=== PATIENT | female | born 1945 | race Caucasian/White ===

== ENCOUNTER 2019-04-04 15:01 | Inpatient (IN) | payer OTHER ==
[~2019-04-04] VITALS: Ht 149.9 cm; Wt 98.4 kg
[2019-04-04 15:05] VITALS: BP 105/60
--- NOTE | 2019-04-04 15:17 | NUR ---
CALL TO PT'S DPOA, DAUGHTER BULMARO, @ [phone]
[2019-04-04 15:29] LABS: ABSOLUTE BASOPHILS 0.1 thou/uL (0.0-0.2); ABSOLUTE EOSINOPHILS 0.1 thou/uL (0.0-0.7); ABSOLUTE LYMPHOCYTES 2.1 thou/uL (0.8-5.3); ABSOLUTE MONOCYTES 1.4 thou/uL (0.0-1.2); ABSOLUTE NEUTROPHILS 14.1 thou/uL (1.6-8.1); BASOPHILS 0.5 %; BE -1.6 mmol/L (-2 to +3); EOSINOPHILS 0.7 %; HEMATOCRIT 37.4 % (37.0-47.0); LYMPHOCYTES 11.9 %; MCHC 32.2 g/dL (28.0-37.0); MCV 99.4 fL (80.0-100.0); MONOCYTES 7.6 %; MPV 7.8 fl. (7.2-11.1); NUCLEATED RBCS 0 /100WBC; PLATELET COUNT* 353 thou/uL (150-400); PO2 74.6 mmHg (75.0-100.0); POLYS 79.3 %; RBC 3.76 mil/uL (4.20-5.00); RDW-CV 13.7 % (10.5-14.5); WBC 17.8 thou/uL (4.0-11.0); pH 7.382 (7.340-7.450)
[2019-04-04 15:37] LABS: CALCIUM 9.3 mg/dL (8.5-10.1); CREATININE 1.8 mg/dL (0.6-1.3); POTASSIUM 3.7 mmol/L (3.5-5.1)
[2019-04-04 15:41] LABS: ALBUMIN 3.2 g/dL (3.4-5.0); MAGNESIUM 1.8 mg/dL (1.8-2.4); TOTAL BILIRUBIN 1.5 mg/dL (<0.1-1.0); TOTAL PROTEIN 6.9 g/dL (6.4-8.2)
[2019-04-04] MEDS ORDERED: CLOPIDOGREL75 MG PO (16:02)
[2019-04-04] MEDS ORDERED: TOPROL XL25 MG PO (16:02)
[2019-04-04] MEDS ORDERED: VALIUM5 MG PO (16:03)
[2019-04-04] MEDS ORDERED: PREDNISONE 10 M10 MG PO (16:03)
[2019-04-04] MEDS ORDERED: LISINOPRIL5 MG PO (16:03)
[2019-04-04] MEDS ORDERED: LASIX 40 MG TAB40 M2 PO (16:04)
[2019-04-04] MEDS ORDERED: SINGULAIR 10 MG10 M1 PO (16:04)
[2019-04-04] MEDS ORDERED: ATIVAN1 MG PO (16:04)
[2019-04-04 16:25] LABS: APTT 24.9 Seconds (25.0-31.3)
[2019-04-04 16:36] LABS: TROPONIN-I LEVEL 0.62 ng/mL (<0.06)
[2019-04-04 18:11] VITALS: BP 102/58
[2019-04-04 18:47] VITALS: BP 126/66
--- NOTE | 2019-04-04 18:50 | NUR ---
PT ADMITTED TO ROOM 204. POSITIVE SEPSIS PROTOCOL IN ED. ED ADMINISTERED 2L NS BOLUS. PULM CONSULT CALLED TO ANSWERING SERVICE. VSS. PT ON 4L O2/NC. HOME DOSE 3L/NC. PT ON HEPARIN GTT FOR NSTEMI. TELE ST WITH RATE IN THE LOW 100'S. ED REPORTS THAT PT REFUSES BIPAP IF NEEDED. NO OTHER CONCERNS AT THIS TIME. CLWR. WCTM.
[2019-04-04 20:00] VITALS: BP 103/60
[2019-04-04 23:58] VITALS: BP 111/54
[2019-04-05 00:27] LABS: URINE BILIRUBIN NEGATIVE (Negative); URINE BLOOD 3+ (Negative); URINE CLARITY CLEAR; URINE COLOR YELLOW; URINE GLUCOSE-RANDOM NEGATIVE (Negative); URINE KETONES 1+ (Negative); URINE LEUKOCYTES-REFLEX 1+ (Negative); URINE NITRITE-REFLEX NEGATIVE (Negative); URINE PROTEIN TRACE (Negative); URINE SPECIFIC GRAVITY 1.025 (1.005-1.030); URINE UROBILINOGEN 0.2 E.U./dl (0.2-1.0)
[2019-04-05 02:07] LABS: SQUAMOUS 0-3 Few /LPF (0-3)
[2019-04-05 02:08] LABS: FINE GRANULAR CASTS 0-3 Few /LPF (None Seen); HYALINE CASTS 4-10 Moderate /LPF (None Seen); MUCUS 0-3 Light strn/LPF (None Seen); URINE WBC-REFLEX >25 Many /HPF (0-5)
[2019-04-05 02:09] LABS: BACTERIA-REFLEX >30 Many /HPF (None Seen); CRYSTALS None Seen /LPF (None Seen); URINE RBC 3-10 Few /HPF (0-2)
[2019-04-05 04:00] VITALS: BP 115/65
--- NOTE | 2019-04-05 04:51 | NUR ---
ASSUMED CARE OF PT AFTER REPORT AT 1930. PT A&OX4. VSS. PHYSICAL ASSESSMENT COMPLETED AND CHARTED. PT ON O2 AT 4L NC. PT TRACING SR ON TELE. PT WITH CHAPIN TO DEPENDENT DRAIN. PT ON HEPARIN DRIP. TITRATED PER PROTOCOL. URINE & SPUTUM SPECIMEN SENT TO LAB. INSTRUCTED ON NPO POST MIDNIGHT FOR CARDIO CONSULTS. COMMUNICATES UNDERSTANDING. CALL LIGHT WITHIN REACH.
[2019-04-05 05:11] LABS: HEMOGLOBIN 10.6 gm/dL (12.0-15.0); MCH 32.3 pg (26.0-34.0); MCHC 32.2 g/dL (28.0-37.0); MCV 100.4 fL (80.0-100.0); MPV 8.1 fl. (7.2-11.1); RBC 3.29 mil/uL (4.20-5.00); WBC 17.7 thou/uL (4.0-11.0)
[2019-04-05 05:51] LABS: ALBUMIN 2.6 g/dL (3.4-5.0); ALKALINE PHOSPHATASE 72 U/L (46-116); ANION GAP 11 mmol/L (7-16); BUN 30 mg/dL (7-18); CALCIUM 9.1 mg/dL (8.5-10.1); CHLORIDE 107 mmol/L (98-107); CHOLESTEROL 98 mg/dL (<200); CO2 22 mmol/L (21-32); CREATININE 1.6 mg/dL (0.6-1.3); GLUCOSE 384 mg/dL (70-99); HDL CHOLESTEROL 57 mg/dL (>40); LDL CHOLESTEROL 29 mg/dL (<100); POTASSIUM 3.5 mmol/L (3.5-5.1); SGOT 46 U/L (15-37); SGPT 39 U/L (30-65); SODIUM 140 mmol/L (136-145); TC:HDL 1.7 Ratio (Not establshd); TOTAL BILIRUBIN 0.4 mg/dL (<0.1-1.0); TOTAL PROTEIN 6.4 g/dL (6.4-8.2); TRIGLYCERIDE 64 mg/dL (<150); VLDL 13 mg/dL (<40)
[2019-04-05 05:53] LABS: SERUM ASSESSMENT Clear
--- NOTE | 2019-04-05 10:16 | NUR ---
Pt is A&O. Resides at home with family. Pt is independent with ADLs, family share IADLs. Pt states that she can ambulate, but states that she pushes her wc with her at all times. Pt wears home o2, provided through [employer]. Hx of [facility] hospice x1 year, Pt is no longer on service. No hx of HH or SNF. Goal is home at nm. Following.
[2019-04-05 10:26] VITALS: BP 144/70
--- NOTE | 2019-04-05 10:43 | EKG ---
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1945 Requested By: Bianca Scott Order Number: [id number] Alfredo MD: Ross Lipscomb Measurements Intervals [place] Rate: 143 P: 49 ID: [id number] QRS: -1 QRSD: 139 T: 99 QT: 392 QTc: 605 Interpretive Statements Sinus tachycardia LAE, consider biatrial enlargement Left bundle branch block No previous ECG available for comparison Electronically Signed On 04-05-2019 10:43:21 CDT by Ross Lipscomb [email or web address] <ELECTRONICALLY SIGNED> By: Ross Lipscomb MD, [facility] 04/05/19 1043 1504 1504 Ross Lipscomb MD, [facility] /EPI
[2019-04-05 11:29] VITALS: BP 126/69
--- NOTE | 2019-04-05 13:05 | 2DMMODE ---
[place] [address] 2 D/M-MODE ECHOCARDIOGRAM Name: RADHAANNIA Room: [address] IN [facility]#: [id number] Admission: 04/04/19 Attend Phys: Kelvin Rodriguez, Discharge: Date of : 47 Date of Service: 04/05/19 1305 Report #: [id number] THIS REPORT FOR: //name// APPROVED REPORT Study performed: 04/05/2019 10:41:00 EXAM: Comprehensive 2D, Doppler, and color-flow Echocardiogram Patient Location: In-Patient Room #: [facility] Status: routine BSA: 1.92 HR: 103 bpm BP: 115/65 mmHg Rhythm: NSR Other Information Study Quality: Good Indications Acute CO COPD Sepsis 2D Dimensions IVSd: 11.48 (7-11mm) LVOT Diam: 20.20 (18-24mm) LVDd: 53.70 mm PWd: 9.14 (7-11mm) LVDs: 45.18 (25-40mm) Aortic Root: 33.22 mm Volumes Left Atrial Volume (Systole) LA ESV Index: 22.70 mL/m2 Aortic Valve AoV Peak Marc.: 1.35 m/s AO Peak Gr.: 7.28 mmHg LVOT Max P.42 mmHg AO Mean Gr.: 3.88 mmHg LVOT Mean P.83 mmHg LVOT Max V: 1.05 m/s AO V2 VTI: 23.10 cm LVOT Mean V: 0.61 m/s MAURIZIO (VTI): 2.46 cm2 LVOT V1 VTI: 17.74 cm Mitral Valve E/A Ratio: 1.08 [place] [address] 2 D/M-MODE ECHOCARDIOGRAM Name: ANNIA GARCIA Room: [address] IN [facility].#: [id number] Admission: 04/04/19 Attend Phys: Kelvin Rodriguez, Discharge: Date of : 47 Date of Service: 04/05/19 1305 Report #: [id number] MV Decel. Time: 200.23 ms MV E Max Marc.: 1.09 m/s MV PHT: 58.07 ms MVA (PHT): 3.79 cm2 TDI E/Lateral E': 9.91 E/Medial E': 12.11 Medial E' Marc.: 0.09 m/s Lateral E' Marc.: 0.11 m/s Pulmonary Valve PV Peak Marc.: 1.13 m/s PV Peak Gr.: 5.11 mmHg Left Ventricle The left ventricle is normal size. Regional wall motion abnormalities are noted. Severe hypokinesis noted of the base of the inferior wall There is normal left ventricular wall thickness. Left ventricular systolic function is mildly decreased. LVEF is 45-50%. Grade I - abnormal relaxation pattern. Right Ventricle The right ventricle is normal size. The right ventricular systolic function is normal. Atria The left atrium size is normal. The right atrium size is normal. Aortic Valve The aortic valve is normal in structure. No aortic regurgitation is present. There is no aortic valvular stenosis. Mitral Valve The mitral valve is normal in structure. Mild mitral regurgitation. No evidence of mitral valve stenosis. Tricuspid Valve The tricuspid valve is normal in structure. Unable to assess PA pressure. Trace tricuspid regurgitation. Pulmonic Valve The pulmonary valve is normal in structure. There is no pulmonic valvular regurgitation. Great Vessels The aortic root is normal in size. [place] [address] 2 D/M-MODE ECHOCARDIOGRAM Name: JARETT GARCIANE Room: [address] IN [facility]#: [id number] Admission: 04/04/19 Attend Phys: Kelvin Rodriguez, Discharge: Date of : 47 Date of Service: 04/05/19 1305 Report #: [id number] visualized. Pericardium There is no pericardial effusion. <Conclusion> LVEF is 45-50%. Regional wall motion abnormalities are noted. Severe hypokinesis noted of the base of the inferior wall Mild mitral regurgitation. <ELECTRONICALLY SIGNED> By: Ross Lipscomb MD, FAC 04/05/19 1305 1305 04 Ross Lipscomb MD, [facility] /INF
[2019-04-05 13:07] LABS: GLYCOHEMOGLOBIN (HGB A1C) 7.6 % (4.8-5.6)
--- NOTE | 2019-04-05 14:28 | NUR ---
ASSUMED PT CARE REPORT RECEIVED FROM MARIANN SILVA. PT IS AOX4. ON 2 L NC. SATURATION IS 96%. PT ACCUCHECK HIGH IN THE 300S. HGB A1C ORDERED, INSULIN ORDER IN FOR [address] ORDER. DR SZYMANSKI CONTACTED REGARDING HEPARIN DRIP. ORDER RECEIVED TO STOP THE DRIP AND TO ORDER LOVENOX. ORDER IS IN. WILL CONTINUE TO MONITOR PT
[2019-04-05 15:31] VITALS: BP 126/69
[2019-04-05 15:32] VITALS: BP 117/61
[2019-04-05 20:00] VITALS: BP 128/54
[2019-04-06] VITALS (7 sets, daily range): BP systolic 120–156; BP diastolic 49–80
--- NOTE | 2019-04-06 05:01 | NUR ---
ASSUMED CARE OF PT AFTER REPORT AT 1930. PT A&OX4. VSS. PHYSICAL ASSESSMENT COMPLETED AND CHARTED. PT ON O2 AT 2L NC. PT TRACING SR/ST/PVC ON TELE. PT WITH EPISODES OF INCOTINENT BLADDER. PT COMPLAINED OF SORETHROAT- DR TATE INFORMED WITH NEW ORDER. PT RESTED WELL ON BED. CALL LIGHT WITHIN REACH.
[2019-04-06 05:30] LABS: HEMATOCRIT 31.9 % (37.0-47.0); HEMOGLOBIN 10.3 gm/dL (12.0-15.0); MCH 31.8 pg (26.0-34.0); MCHC 32.3 g/dL (28.0-37.0); MCV 98.7 fL (80.0-100.0); MPV 8.3 fl. (7.2-11.1); NUCLEATED RBCS 0 /100WBC; PLATELET COUNT* 320 thou/uL (150-400); RBC 3.24 mil/uL (4.20-5.00); RDW-CV 13.8 % (10.5-14.5); WBC 21.5 thou/uL (4.0-11.0)
[2019-04-06 05:53] LABS: ALBUMIN 2.7 g/dL (3.4-5.0); CALCIUM 9.7 mg/dL (8.5-10.1); CREATININE 1.2 mg/dL (0.6-1.3); MAGNESIUM 2.2 mg/dL (1.8-2.4); POTASSIUM 3.7 mmol/L (3.5-5.1); TOTAL BILIRUBIN 0.3 mg/dL (<0.1-1.0); TOTAL PROTEIN 6.7 g/dL (6.4-8.2)
[2019-04-06 05:56] LABS: TROPONIN-I LEVEL 0.99 ng/mL (<0.06)
[2019-04-06 06:50] LABS: ABSOLUTE LYMPHOCYTES 0.9 thou/uL (0.8-5.3); ABSOLUTE MONOCYTES 1.1 thou/uL (0.0-1.2); ABSOLUTE NEUTROPHILS 19.6 thou/uL (1.6-8.1); METAMYELOCYTES 1 %; MYELOCYTES 1 %
[2019-04-06 06:51] LABS: PLATELET ESTIMATE ADEQUATE
--- NOTE | 2019-04-06 08:13 | CON ---
[address] [address] CONSULTATION Name: ANNIA GARCIA Room: [address] IN M.R.#: [id number] Admission: 04/04/19 Attend Phys: Kelvin Rodriguez MD Discharge: Date of : 47 Report #: [id number] THIS REPORT FOR: //name// CC: Kelvin Delgado CONSULTATION REQUESTING PHYSICIAN: Kelvin Rodriguez M.D. INDICATION FOR CONSULTATION: Shortness of breath. HISTORY OF PRESENT ILLNESS: This is a 73-year-old female with past medical history as mentioned below. I have previously seen her in the office. The patient has been on hospice care, but she had requested that we also continued to follow her as an outpatient and therefore, we had done so. The patient has a very low FEV1 at only 590 mL at 27% of the reference range. She is on long-term oxygen. She previously has also been on BiPAP while asleep and does have a history of obstructive sleep apnea as well. The patient, however, now reports that she has discontinued the use of BiPAP and is not willing to use at this time due to claustrophobia. The patient is now admitted here with severe shortness of breath yesterday. The patient had been coughing and bringing up significant amounts of yellow sputum for the last 2 weeks. She states that the hospitalist service did increase her prednisone to 20 mg daily for 5-7 days and subsequently brought her down back to 10. She does not report having had any recent antibiotics. She does not report any chest pain. She states that she has had a significant postnasal drip. She does not have a sore throat. There is no increasing swelling of lower extremities and there is no calf pain. She has disturbed sleep at night and sleepiness during the day. These complaints are at baseline. She has occasional joint pains and these remained also at baseline. REVIEW OF SYSTEMS: I asked a total of 12 questions for review of systems therapy review of systems is negative except as mentioned above. PAST MEDICAL HISTORY: COPD, very severe and she has been on hospice as mentioned above; chronic respiratory failure with hypoxemia secondary to COPD during the previous admission at [facility], we had to reintubate twice during the same admission; however, we were able to avoid performing a tracheostomy and PEG tube. The patient previously was on BiPAP but is now intolerant with a long-term prednisone and long-term oxygen, obstructive sleep apnea, chronic systolic congestive heart failure, previous left ventricular ejection fraction had dropped down to 35% with subsequent recovery of a left ventricular ejection fraction to a normal level at 50%-55% last year. The patient does have moderate mitral regurgitation. Also, history of ventricular fibrillation in the past. I do not recall her previous creatinine; however, there is no mention of kidney disease in the past. [place] [address] CONSULTATION Name: YESICASHITALJARETTANNIA Room: [address] IN ..#: [id number] Admission: 04/04/19 Attend Phys: Kelvin Rodriguez MD Discharge: Date of : 47 Report #: [id number] morbid obesity, also hypertension and coronary artery disease. SOCIAL HISTORY: She has an extensive history of smoking a half to 1 pack a day for several decades, perhaps more than 50 years, discontinued in 2016. No known history of heavy alcohol use or illegal drug use. CURRENT MEDICATIONS: List in [facility] reviewed. HOME MEDICATIONS: List in [facility] reviewed. Note that the patient was on 10 mg of prednisone daily. The list from November from our office, which is in the paper chart is also reviewed and includes amiodarone. ALLERGIES: No known drug allergies. FAMILY HISTORY: Hypertension and heart disease. PHYSICAL EXAMINATION: GENERAL: She is alert, awake and oriented, does appear to be short of breath at rest. VITAL SIGNS: She has a pulse of 93 and a blood pressure of 126/69. She is saturating 97%. She is on 3 liters oxygen via nasal cannula, respiratory rate is 18. She is afebrile with a temperature of 36.9 with minor elevation in temperature up to 37.0 earlier today. Body mass index is elevated to 45. HEENT: Head is normocephalic and atraumatic. Pupils are equal and reactive. There is no throat erythema. Airway is Mallampati 4. NECK: Does not show raised JVP, asymmetry, mass or lymph nodes. CHEST: Symmetrical expansion on inspection and palpation. On auscultation, breath sounds are bilaterally significantly decreased. Expirations are significantly prolonged. Breath sounds are bilaterally equal. I do not hear any added sounds. HEART: Regular. There is no murmur. ABDOMEN: Soft and nontender. EXTREMITIES: Lower extremities show no edema and no calf tenderness. SKIN: Dry and intact. NEUROLOGICAL: Moves all extremities bilaterally equally and spontaneously with no focal deficit identified. LABORATORY DATA: The patient's lab work, which does show an elevation in creatinine yesterday as [facility]. Creatinine was 1.8 yesterday and 1.6 this morning. The patient's CBC as well as arterial blood gas in [facility] reviewed. Coagulation studies in [facility] reviewed. Urinalysis in [facility] reviewed. Note that the patient was initially on IV heparin, which has now been discontinued and [place] [address] CONSULTATION Name: ANNIA GARCIA Room: [address] IN M.R.#: [id number] Admission: 04/04/19 Attend Phys: Kelvin Rodriguez MD Discharge: Date of : 47 Report #: [id number] RADIOLOGICAL DATA: The patient's chest x-ray from yesterday is reviewed. On my review, there is an infiltrate in the right middle lobe/lower lobe region. There is also small radiopaque density in the left lower lobe, which is also suspicious of an infiltrate, atelectasis or a small pleural effusion in the left lung base can also lead to the picture at the left lung base. There is no increase in pulmonary vascular congestion. There are some chronic changes. ASSESSMENT AND PLAN: 1. Woknk-nm-jgwicux hypoxemic respiratory failure. The patient does have a history of underlying obstructive sleep apnea and very severe COPD with benefit from BiPAP while asleep. I recommended the same. The patient declined. We will continue to titrate oxygen. 2. Pulmonary infiltrates on my review of the patient's chest x-ray. There is a right middle lobe/right lower lobe infiltrate. Certainly if this is old, then chronic changes can also account for this. I do not have a previous chest x-ray available. It will also be possible that there is an infiltrate in the left lower lobe. Therefore, I recommend continuing with broad-spectrum antibiotics. The patient has received Zithromax as well as ceftriaxone and has ordered the Zithromax as well as cefdinir to be continued tomorrow as the minimum inhibitory concentrations for certain bacteria are not always reached with 1 gram of ceftriaxone. I elected to order an additional dose of ceftriaxone now. Recommend reassessing the patient tomorrow morning and if the patient continues to improve, then it would be reasonable to continue oral antibiotics; otherwise, I would favor restarting an alternate agent, possibly an intravenous beta-lactam antibiotic again. Urine for Legionella antigen is pending. I went ahead and ordered urine for pneumococcal antigen as well. I have also ordered a chest x-ray now. 3. Chronic obstructive pulmonary disease exacerbation. Note that she is on long-term prednisone. I agree with Solu-Medrol as well as nebulized bronchodilators as currently prescribed. I would go ahead and add budesonide and Brovana. The patient also is on Singulair. Note that the patient is on long-term prednisone. 4. Renal insufficiency. I do not have a previous creatinine available. There is no mention of kidney disease on the previous records. I will review the chest x-ray, I have just ordered and then decide. We will also see if I can get a previous creatinine level. At this time, I am inclined to administer more fluids. Note that the patient does have infiltrates on the x-ray. The last lactate was elevated. 5. Obstructive sleep apnea, see discussion above. 6. Elevated troponin I/possible non-ST myocardial infarction. I would defer evaluation to the Cardiology Service. 7. Evaluation for thromboembolic phenomena. The repeat echo report just appeared in the computer, I was dictating, the left ventricular ejection fraction is 45%-50% now and the right heart pressures are not elevated. I feel that the V/Q scan is nondiagnostic. My suspicion of thromboembolism is low, I would therefore not continue anticoagulation for this reason. We would suggest [address] [address] CONSULTATION Name: ANNIA GARCIA Room: [address] IN .R.#: [id number] Admission: 04/04/19 Attend Phys: Kelvin Rodriguez MD Discharge: Date of : 47 Report #: [id number] only prophylactic dose Lovenox. I would defer to The Cardiology Service as to whether full anticoagulation is indicated from their point of view. For the sake of completion, I will go ahead and do venous Dopplers. 8. Hyperglycemia. The fasting blood glucose this morning is 384. I recommended starting an insulin sliding scale and if the glucoses remain elevated, suggested to the patient's RN to review with the patient's primary service. Thanks for this consultation. <ELECTRONICALLY SIGNED> By: Marybeth Martin MD 04/06/19 0813 1311 [id number] Siddiqui MD /nt
--- NOTE | 2019-04-06 14:49 | EKG ---
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[facility] : 1945 Requested By: Ross Lipscomb Order Number: [id number] Reading MD: Nitesh Devries Measurements Intervals [place] Rate: 105 P: 77 TX: 151 QRS: 17 QRSD: 97 T: 22 QT: 327 QTc: 433 Interpretive Statements Sinus tachycardia Multiple ventricular premature complexes Low voltage, precordial leads Compared to ECG 04/04/2019 15:04:45 Ventricular premature complex(es) now present Low QRS voltage now present Left bundle-branch block no longer present Electronically Signed On 04-06-2019 14:48:51 CDT by Nitesh Devries [email or web address] <ELECTRONICALLY SIGNED> By: Nitesh Devries MD, [facility] 04/06/19 1448 0741 0741 Nitesh Devries MD, [facility] /EPI
--- NOTE | 2019-04-06 15:38 | NUR ---
ASSUMED CARE OF PT AROUND 0730 THIS AM. REFER TO ASSESSMENT. PT TOLERATING HOME DOSE OXYGEN. TELE SR-ST THIS SHIFT. NOTED TO INCREASE HEART RATE IN THE 140'S WHEN AMBULATING TO BATHROOM. STANDARD DOSE INSULIN WITH SLIDING SCALE AND ORAL ANTIDIABETICS GIVEN TO MANAGE BLOOD SUGARS. NO OTHER CONCERNS AT THIS TIME. CLWR. WCTM.
--- NOTE | 2019-04-06 18:05 | CON ---
[address] [address] CONSULTATION Name: ANNIA GARCIA Room: [address] IN M.R.#: [id number] Admission: 04/04/19 Attend Phys: Kelvin Rodriguez MD Discharge: Date of : 47 Report #: [id number] THIS REPORT FOR: //name// CC: Kelvin Delgado DATE OF SERVICE: 04/05/2019 HISTORY OF PRESENT ILLNESS: The patient is a 73-year-old single white female whom I was asked to see in the hospital today after she is noted to have an elevated troponin. Unfortunately, not lot of the old records is available. The history is obtained from the patient, and no family was available. The patient states she was actually admitted to [place] in 2017 with shortness of breath. She apparently had to be intubated and was on a ventilator for 2 weeks. She has a history of COPD and has home oxygen and nebulized treatments. She had a previous coronary artery stent placed at [facility]. She is not very active because of her COPD. Over the last few days, she has had increasing shortness of breath and cough. She had a sore throat. Her daughter brought her to the hospital yesterday. She was admitted. She is noted to have an elevated troponin. I was asked to see her for further evaluation and treatment. She denies any chest pain, arm pain, palpitations, syncope or edema. She has had no bleeding. PAST MEDICAL HISTORY: Significant for previous cataract extraction, cholecystectomy, hypertension, hyperlipidemia, and COPD. HOME MEDICATIONS: Consist of Plavix, Valium, Lasix, lisinopril, Ativan, metoprolol, Singulair, prednisone, and Lipitor. ALLERGIES: She has no known drug allergies. FAMILY HISTORY: Negative for heart disease. SOCIAL HISTORY: She is , lives with daughter in [place], [place]. Used to smoke a pack of cigarettes a day, now down to half pack of cigarettes a day, but she quit 3 years ago. She is on disability. She has a history of alcohol abuse, had a previous DWI, used to drink a 12-pack of beer a day, also whiskey. No longer abuses alcohol. REVIEW OF SYSTEMS: She had no history of stroke. No history of peptic ulcer disease, liver disease, kidney disease, cancer or psychiatric illness or chronic skin condition. PHYSICAL EXAMINATION: GENERAL: Revealed an elderly female, appeared [place] [address] CONSULTATION Name: ANNIA GARCIA Room: [address]#: [id number] Admission: 04/04/19 Attend Phys: Kelvin Rodriguez MD Discharge: Date of : 47 Report #: [id number] VITAL SIGNS: She had a blood pressure of 120/60, pulse is 80, and she is afebrile. HEENT: She is anicteric. Conjunctivae pink. Mucous members are moist. NECK: Veins are difficult to assess due to obesity. No carotid bruits heard. CHEST: Revealed expiratory wheezes with coarse breath sounds. CARDIOVASCULAR: Regular rate and rhythm. No significant murmur. ABDOMEN: Obese. EXTREMITIES: Had no pitting edema. Dorsalis pedis pulse 2+ bilaterally. SKIN: Cool and dry. NEUROLOGIC: Nonfocal. LYMPH: No adenopathy. MUSCULOSKELETAL: No joint effusion. ECG: From last night showed sinus tachycardia with a left bundle branch block. LABORATORY DATA: Sodium is 140, BUN 30, creatinine 1.6, and albumin 2.6. Troponin on admission was 0.62. This was 3.14. BNP is 1104. Cholesterol is 98, triglycerides 64, HDL 57, and LDL 29. White blood cell count is 17.7, hemoglobin 10.6, and hematocrit 37. The patient had a portable chest x-ray in the emergency room yesterday that showed normal heart size and clear lung gerard. IMPRESSION AND RECOMMENDATIONS: 1. Type 2 myocardial infarction. I will continue aspirin and Plavix. I would not recommend cardiac catheterization at this time. Because of her wheezing, I would consider discontinuing her beta james. 2. Coronary artery disease with previous stent. Continue aspirin and Plavix. 3. Chronic obstructive pulmonary disease. The patient followed by Pulmonary as an outpatient. 4. Hypertension. The patient is on a beta james and SHANNON inhibitor. 5. Hyperlipidemia. The patient is on a statin drug. 6. Obesity. 7. History of tobacco abuse. 8. History of alcohol abuse. <ELECTRONICALLY SIGNED> By: Ross Lipscomb MD, [facility] 04/06/19 1805 0855 1923Djamila Lipscomb MD, [facility] /nt
[2019-04-07 04:00] VITALS: BP 143/70
[2019-04-07 04:40] LABS: HEMATOCRIT 29.8 % (37.0-47.0); HEMOGLOBIN 9.9 gm/dL (12.0-15.0); MCH 32.8 pg (26.0-34.0); MCHC 33.3 g/dL (28.0-37.0); MCV 98.5 fL (80.0-100.0); RBC 3.02 mil/uL (4.20-5.00); RDW-CV 13.5 % (10.5-14.5); WBC 18.6 thou/uL (4.0-11.0)
--- NOTE | 2019-04-07 04:48 | NUR ---
PT CARE ASSUMED AT 1930. SAT MAINTAINED IN IN. ALERT AND ORIENTED X4, FORGETFUL. CALL LIGHT WITHIN REACH AND BED IN LOW POSITION. C/O PAIN, MEDICATION GIVEN PER EMAR. HOURLY ROUNDING DONE FOR PT SAFETY. PT INSISTS ON WEARING BRIEFS, EDUCATION GIVEN, NEEDS REINFORCEMENT.
[2019-04-07 05:04] LABS: CALCIUM 9.5 mg/dL (8.5-10.1); CREATININE 1.3 mg/dL (0.6-1.3); MAGNESIUM 2.1 mg/dL (1.8-2.4); POTASSIUM 3.6 mmol/L (3.5-5.1)
[2019-04-07 08:00] VITALS: BP 156/105
[2019-04-07 11:30] VITALS: BP 141/78
[2019-04-07 15:55] VITALS: BP 139/76
[2019-04-07 20:00] VITALS: BP 160/78
[2019-04-08] VITALS: BP 141/79
[2019-04-08 04:00] VITALS: BP 118/70
--- NOTE | 2019-04-08 08:13 | NUR ---
PT CARE ASSUMED AT 1930. ALERT AND ORIENTED X4 BUT FORGETFUL. CALL LIGHT WITHIN REACH AND BED IN LOW POSITION. C/O PAIN, MEDICATION GIVEN PER EMAR. PT GOT SOB THIS AM, HR RUNNING ON 140-150, RESPITORY PAGED FOR BREATHING TREATMENT. PHYSICIAN INFORMED, ORDERS RECIEVED. PT ON BIPAP NOW. HOURLY ROUNDING DONE FOR PT SAFETY.
[2019-04-08 09:00] LABS: BE -2.7 mmol/L (-2 to +3); PCO2 48.8 mmHg (35.0-45.0); pH 7.307 (7.340-7.450)
[2019-04-08 09:20] LABS: ABSOLUTE LYMPHOCYTES 0.6 thou/uL (0.8-5.3); ABSOLUTE MONOCYTES 0.8 thou/uL (0.0-1.2); ABSOLUTE NEUTROPHILS 16.3 thou/uL (1.6-8.1); BASOPHILS 0.1 %; HEMATOCRIT 33.8 % (37.0-47.0); HEMOGLOBIN 10.8 gm/dL (12.0-15.0); LYMPHOCYTES 3.5 %; MCH 31.7 pg (26.0-34.0); MONOCYTES 4.6 %; NUCLEATED RBCS 0 /100WBC; PLATELET COUNT* 364 thou/uL (150-400); POLYS 91.8 %; RBC 3.42 mil/uL (4.20-5.00); RDW-CV 13.5 % (10.5-14.5); WBC 17.8 thou/uL (4.0-11.0)
[2019-04-08 09:32] LABS: CALCIUM 9.6 mg/dL (8.5-10.1); CREATININE 1.3 mg/dL (0.6-1.3); POTASSIUM 4.1 mmol/L (3.5-5.1); TROPONIN-I LEVEL 0.57 ng/mL (<0.06)
[2019-04-08 11:21] VITALS: BP 149/68
[2019-04-08 15:19] VITALS: BP 150/73
--- NOTE | 2019-04-08 18:26 | NUR ---
ASSUMED PT CARE REPORT RECEIVED FROM NURSE. PT IS AOX3 FORGETFUL ON 5 L NC SATURATION IS 96% PT IS ANXIOUS AND COMPLAINS OF PAIN IN ABDOMEN AND AIR HUNGER. BIPAP WAS ORDERED, PT PALCED ON BIPAP NEEDED DRUING THIS SHIFT. PT TACHYCARDIC THIS AM WITH HR IN THE 150S. BP 148/76. EKG WAS DONE AND SHOWED A FIB. PT THEN CALMED DOWN AND CARPENTER AND JOINER RYTHM TRENDED DOWN TO 120. BIPAP SEEMS TO HELP . HEART RATE REMAINS IN THE 100S DURING A TIME . HEART RATE DOWN TO 80S 90S DURING AFTRNOON TIME. PT NOT COMPLIANT WITH FALL PRECAUTION. ALL AGREEMENT WAS MADE SIGNED WELL MEDICARE PAPER. LASIX WAS GIVEN. PT HAD GOOD OUTPU WITH LOTS OF INCONTENENCE. MORPHINE AN ATIVAN GIVEN TO PT TO DECREASE AIR HUNGER EPISODES. BLOOD SUGAR MONITORED , INSULIN GIVEN ORDERED. PT CURRENLY RESTING IN BED AT THIS MOMENT. NO SOA,WILL CONTINUE TO MONITOR
[2019-04-08 20:00] VITALS: BP 123/75
[2019-04-08 23:59] VITALS: BP 180/83
[2019-04-09 04:00] VITALS: BP 140/90
--- NOTE | 2019-04-09 07:45 | NUR ---
ASSUMED PT CARE AT 1930. ASSESSMENT COMPLETED CHARTED. UNABLE TO MAKE SOME NEEDS KNOWN. [id number] COMPLETED CHARTED. NO C/O PAIN OR DISCOMFORT. UP WITH 1 TO BSC. VSS. PT RESTING IN BED AT THIS TIME WITH OXYGEN ON. WILL CONTINUE TO MONITOR.
[2019-04-09 08:23] VITALS: BP 153/85
--- NOTE | 2019-04-09 10:00 | NUR ---
RECEIVED REPORT AND ASSUMED CARE OF PT AT 0735.PT IS A/OX4.CONFUSED SOMETIMES.ANXIOUS AND AGITATED.UP WITH ASSIST.WAS ON 4 L HIGH FLOW BUT PT HAD TROUBLE BREATHING SO PLACED ON BIPAP.PT DOING OK AFTER THAT.NO SKIN ISSUES.TRACING SR PVCS ON THE MONITOR.BM TODAY.BRUSINGS PRESENT ON SOME AREAS.CALL LIGHT AND FALL PRECAUTIONS IN PLACE .WILL CONTINUE TO MONITOR.
[2019-04-09 12:27] VITALS: BP 149/70
[2019-04-09 15:11] LABS: CALCIUM 9.3 mg/dL (8.5-10.1); CREATININE 1.4 mg/dL (0.6-1.3); POTASSIUM 3.3 mmol/L (3.5-5.1); TROPONIN-I LEVEL 0.31 ng/mL (<0.06)
[2019-04-09 15:35] VITALS: BP 141/81
--- NOTE | 2019-04-09 17:52 | NUR ---
PT IS A/OX4 BUT CONFUSED SOME TIMES.AGITATED AND ANXIOUS.TRACING SR WITH PVCS ON THE MONITOR.UP WITH ASSIST.ON 4 L NC.BIPAP PRN. POTASSIUM REPLACED PER PROTOCOL.BRUSING PRESENTS ON SOME PARTS OF BODY.BLOOD SUGAR MANAGED PER PROTOCOL.CALL LIGHT AND FALL PRECAUTIONS IN PLACE.WILL CONTINUE TO MONITOR.
[2019-04-09 20:00] VITALS: BP 133/58
[2019-04-10] VITALS: BP 136/62
[2019-04-10 04:00] VITALS: BP 142/52
[2019-04-10 05:04] LABS: HEMATOCRIT 30.3 % (37.0-47.0); HEMOGLOBIN 10.1 gm/dL (12.0-15.0); MCH 32.3 pg (26.0-34.0); MCHC 33.3 g/dL (28.0-37.0); MCV 97.3 fL (80.0-100.0); MPV 8.1 fl. (7.2-11.1); RBC 3.11 mil/uL (4.20-5.00); RDW-CV 13.1 % (10.5-14.5); WBC 15.6 thou/uL (4.0-11.0)
--- NOTE | 2019-04-10 05:39 | NUR ---
ASSUMED PT CARE AT 1930. ASSESSMENT COMPLETED CHARTED. PT ON BIPAP A COUPLE HOURS DURING THE NIGHT. PT RESTING IN BED AT THIS TIME. VSS. ABLE TO MAKE SOME NEEDS KNOWN. Q7LDBED COMPLETED CHARTED. WILL CONTINUE TO MONITOR.
[2019-04-10 09:42] LABS: BE -0.7 mmol/L (-2 to +3); PCO2 34.5 mmHg (35.0-45.0); PO2 109.6 mmHg (75.0-100.0); pH 7.439 (7.340-7.450)
[2019-04-10 11:30] VITALS: BP 126/69
[2019-04-10 11:57] VITALS: BP 147/80
--- NOTE | 2019-04-10 12:34 | EKG ---
[place] [address] ELECTROCARDIOGRAM REPORT Name: ANNIA GARCIA Room: [address] ADM IN M.R.#: [id number] Admission: 04/04/19 Attend Phys: Kelvin Rodriguez MD Discharge: Date of : 47 Report #: [id number] THIS REPORT FOR: //name// [facility] Test Date: 2019-04-08 Test Time: 07:33:52 Pat Name: ANNIA GARCIA Department: Room: [address] Gender: F Supervisor Insecticide: RYLEE : 1945 Requested By: Kelvin Rodriguez Order Number: [id number] Reading MD: Barry Lares Measurements Intervals [place] Rate: 136 P: [place]: QRS: 23 QRSD: 98 T: 7 QT: 336 QTc: 506 Interpretive Statements Atrial fibrillation Low voltage, precordial leads Borderline T abnormalities, inferior leads Prolonged QT interval Compared to ECG 04/06/2019 07:41:15 T-wave abnormality now present Prolonged QT interval now present Sinus tachycardia no longer present Ventricular premature complex(es) no longer present Electronically Signed On 04-10-2019 12:34:24 CDT by Barry Lares [email or web address] <ELECTRONICALLY SIGNED> By: Barry Lares MD, [facility] 04/10/19 1234 0733 0733 Barry Lares MD, [facility] /EPI
[2019-04-10 16:00] VITALS: BP 115/78
--- NOTE | 2019-04-10 17:26 | NUR ---
PT A&Ox4. VITALS STABLE. ON 4LO2. ON TELE MONITOR. UP WITH 1. IV R FA PATENT. HAS SOME BRUSING ON ARMS FROM LABS AND IV PLACING. GENERAL EDEMA IN BILAT ARMS. DENIED PAIN. DENIED NAUSEA. CALL LIGHT WITHIN REACH. WILL CONTINUE TO MONITOR.
--- NOTE | 2019-04-10 17:33 | EKG ---
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 : 1945 Requested By: Oleg Henderson Order Number: [id number] Alfredo MD: Nitesh Devries Measurements Intervals [place] Rate: 141 P: 127 AR: 155 QRS: 156 QRSD: 111 T: 191 QT: 330 QTc: 506 Interpretive Statements Atrial fibrillation Probable lateral infarct, age indeterminate, possible Prolonged QT interval Compared to ECG 04/06/2019 07:41:15 Myocardial infarct finding now present Prolonged QT interval now present Ventricular premature complex(es) no longer present Electronically Signed On 04-10-2019 17:33:32 CDT by Nitesh Devries [email or web address] <ELECTRONICALLY SIGNED> By: Nitesh Devries MD, [facility] 04/10/19 1733 0727 07 Nitesh Devries MD, [facility] /EPI
[2019-04-10 19:50] VITALS: BP 131/61
[2019-04-11] VITALS: BP 144/79
[2019-04-11 04:00] VITALS: BP 157/83
[2019-04-11 05:41] LABS: CALCIUM 9.1 mg/dL (8.5-10.1); CREATININE 1.1 mg/dL (0.6-1.3)
--- NOTE | 2019-04-11 05:42 | NUR ---
PATIENT PARTIALLY PROGRESSING TOWARDS GOALS: PATIENT DENIES PAIN AND DISCOMFORT THIS SHIFT. VSS ON 3L O2 NC. PATIENT TRANSFERRED TO BEDSIDE COMMODE WITH MINIMAL ASSIST. HAD A SMALL BOWEL MOVEMENT. PATIENT INCONTINENT OF URINE. REFUSING TO LEAVE BRIEF OFF DESPITE EDUCATION ON SKIN INTEGRITY AND BREAK DOWN. CHECKED FOR INCONTINENCE AND REPOSITIONED Q2H. PATIENT ANTICIPATING REHAB CONSULT/EVALUATION AND POSSIBLE DISCHARGE TO REHAB TODAY. CALL LIGHT WITHIN REACH
[2019-04-11 07:30] VITALS: BP 148/79
[2019-04-11] MEDS ORDERED: CEFDINIR300 MG PO (10:51)
[2019-04-11] MEDS ORDERED: ASPIR 8181 MG PO (10:51)
[2019-04-11] MEDS ORDERED: PROTONIX40 M1 PO (10:52)
[2019-04-11 10:55] VITALS: BP 148/79
[2019-04-11 11:23] VITALS: BP 148/79
--- NOTE | 2019-04-11 13:31 | NUR ---
cm followed up with pt to disccuss HH as pt denied rehab. Pt stated she preferred outpatient pt instead of HH. [facility]. pt signed 'Choice of Vendor' form. cm faxed referral to [facility] [phone]. cm to remain available to assist and follow as needed. [facility] [place] [id number]
--- NOTE | 2019-04-11 13:50 | NUR ---
PT. DISCHARGED TO HOME WITH OUTPATIENT THERAPY PRIOR TO O.T. EVAL. PLEASE ORDER FURTHER O.T. SERVICES IF NEEDED.
== END 2019-04-11 13:39 | disposition home or self-care (01) | DRG 871 ==
LOC: M.ERS 15:01 → M.2W 16:04 → M.TBA-ER 16:04 → M.2W 18:22
PROVIDERS: Internal Medicine; Internal Medicine Critical Care Medicine; Internal Medicine Pulmonary Disease; Personal Emergency Response Attendant; ADMIT Internal Medicine
PROC: 5A09357 Assistance with Respiratory Ventilation, Less than 24 Consecutive Hours, Continuous Positive Airway Pressure (ICD-10-PCS; principal; 2019-04-08)
PROC: 5A09357 Assistance with Respiratory Ventilation, Less than 24 Consecutive Hours, Continuous Positive Airway Pressure (ICD-10-PCS; 2019-04-09)
DX: A41.9 Sepsis, unspecified organism (principal); J18.9 Pneumonia, unspecified organism; J96.21 Acute and chronic respiratory failure with hypoxia; N17.0 Acute kidney failure with tubular necrosis; I21.A1 Myocardial infarction type 2; I13.0 Hypertensive heart and chronic kidney disease with heart failure and stage 1 through stage 4 chronic kidney disease, or unspecified chronic kidney disease; J44.0 Chronic obstructive pulmonary disease with (acute) lower respiratory infection; J44.1 Chronic obstructive pulmonary disease with (acute) exacerbation; Z68.41 Body mass index [BMI] 40.0-44.9, adult; I50.42 Chronic combined systolic (congestive) and diastolic (congestive) heart failure; I42.9 Cardiomyopathy, unspecified; E11.22 Type 2 diabetes mellitus with diabetic chronic kidney disease; J20.9 Acute bronchitis, unspecified; E80.6 Other disorders of bilirubin metabolism; E11.65 Type 2 diabetes mellitus with hyperglycemia; G47.33 Obstructive sleep apnea (adult) (pediatric); N18.3 Chronic kidney disease, stage 3 (moderate); I25.10 Atherosclerotic heart disease of native coronary artery without angina pectoris; E78.5 Hyperlipidemia, unspecified; F10.10 Alcohol abuse, uncomplicated; E66.01 Morbid (severe) obesity due to excess calories; Z95.5 Presence of coronary angioplasty implant and graft; Z99.81 Dependence on supplemental oxygen; Z90.49 Acquired absence of other specified parts of digestive tract; Z98.49 Cataract extraction status, unspecified eye; Z82.49 Family history of ischemic heart disease and other diseases of the circulatory system; Z87.891 Personal history of nicotine dependence